=== PATIENT | male | born 1965 | race Caucasian/White ===

== ENCOUNTER → 2016-12-11 | Outpatient (CLI) | payer OTHER ==
[~2016-12-11] VITALS: Ht 188 cm; Wt 107.0 kg
[~2016-12-11] MED LIST: ABILIFY10 MG PO; CENTRUM SILVER1 EAC2 PO; CRESTOR20 MG PO; DEXILANT60 MG PO; FARXIGA10 MG PO; FLUOXETINE HCL40 MG PO; IBUPROFEN 200200 M1 PO; LUNESTA3 MG PO; METFORMIN HCL1000 MG PO; MIRALAX17 GM PO; MOBIC7.5 MG PO; NASONEX17 GM NASAL; PROZAC20 MG PO; RESTORIL30 MG PO; SEROQUEL 300 MG PO; SEROQUEL XR 30300 M1 PO; SINGULAIR 10 MG10 M1 PO; TRAMADOL 50 MG50 MG PO; TRAMADOL HCL50 MG PO; ZEGERID 20 MG1 EACH PO
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
[2016-12-11 13:08] VITALS: BP 136/95
== END | disposition home or self-care (01) ==
LOC: PAIN 07:33
DX: M47.816 Spondylosis without myelopathy or radiculopathy, lumbar region (principal); Z68.30 Body mass index [BMI] 30.0-30.9, adult; I10 Essential (primary) hypertension

== ENCOUNTER → 2016-12-17 | Outpatient (CLI) | payer OTHER ==
[~2016-12-17] VITALS: Ht 188 cm; Wt 106.3 kg
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
[2016-12-17 08:48] VITALS: BP 127/76
== END | disposition home or self-care (01) ==
LOC: PAIN 06:54
DX: M47.816 Spondylosis without myelopathy or radiculopathy, lumbar region (principal)

== ENCOUNTER → 2018-09-01 | Outpatient (CLI) | payer OTHER ==
[~2018-09-01] VITALS: Ht 188 cm; Wt 108.4 kg
[~2018-09-01] MED LIST changes: +ARIPIPRAZOLE5 MG PO; +ESCITALOPRAM OX10 MG PO; +JANUMET XR 50-1 EAC1 PO; +PROTONIX40 M1 PO; +RESTORIL15 MG PO; +REXULTI2 MG PO
[2018-09-01 10:02] VITALS: BP 126/76
--- NOTE | 2018-09-01 10:20 | NUR ---
Pain Clinic Assessment: 1. History of Osteoarthritis: Not Applicable History of Rheumatoid Arthritis: Not Applicable 2. Height: 6 ft. 2 in. 188.0 cm. Weight: 239.0 lb. oz. 108.410 kg. Patient's BMI: 30.7 3. Vital Signs: BP: 126/76 Pulse: 105 Resp: 16 Temp: 02 Sat: 97 ECG Mon: 4. Pain Intensity: 2-3 sitting 8 activity 5. Fall Risk: Dizziness: N Needs help standing or walking: N Fallen in the last 3 months: N Fall risk comments: 6. Patient on Blood Thinner: None 7. History of Hypertension: Y 8. Opioid Therapy greater than 6 weeks: N Opiate Contract Signed: 9. Risk Assessment Tool Provided: 3-L0W 10. Functional Assessment Tool: 4470 11. Recreational Drug Use: Never Drug Type: Tobacco Use: Never Smoker Tobacco Type: Amount or Packs/day: How Many Years: Alcohol Use: No Frequency: Quant:
--- NOTE | 2018-09-06 17:25 | HPC ---
[facility] [place] [address] [address] [place] [address] PAIN MANAGEMENT CONSULTATION Name: ION WOODWARD Room #: REG [facility].#: [id number] Admission: 09/01/18 ������������������ Attend Phys: Dioni Camarillo MD Discharge: ������������������ Date of : 63 Report #: [id number] THIS REPORT FOR: //name// CC: Asim Camarillo DATE OF SERVICE: 09/01/2018 CHIEF COMPLAINT: Low back pain with spondylosis and new onset bilateral L5 radiculopathy. I am seeing the patient for the first time and it has been over 2 years since he was last in our clinic to see Dr. Jann Sanches. When he was here previously, he complained of pain in the left lumbar spine region and Dr. Sanches performed for the second time on 12/17/2016 radiofrequency at the L2, L3 and L4 levels providing outstanding relief. I reviewed those films. Pain relief was in excess of 6 months and has recently gotten worse. He also complains of pain that he describes perfectly as an L5 radicular pain from his back radiating through his hips and down the lateral aspect of his legs to his feet. This is not as bad as his back pain, but he would like some consideration of this condition. He has an MRI dated 07/22/2018, which I reviewed. It shows degenerative changes involving lumbar disks and facets with progression of facet arthropathy at L1-L2 and decreasing anterior osteophyte complex at L2-L3. Additional facet arthropathy is noted at the L2-L3, L3-L4 and L4-L5 levels. Dr. Sanches treated the L2, L3 and L4 medial branch nerves with good success in the past. It also should be noted that there is bilateral foraminal stenosis at L5-S1 from a disk osteophyte complex and lateral recess stenosis at L4-L5 with multifactorial changes including disk bulging contacting the L5 nerve roots. This is likely the cause of his L5 radicular symptoms. MEDICATIONS: Reviewed and reconciled and include pantoprazole, Janumet, Lexapro, temazepam, tramadol, meloxicam, Farxiga, montelukast, Nasonex spray, metformin, Crestor, multivitamins. ALLERGIES: None. PAST MEDICAL HISTORY: Remarkable for bipolar depression. He also has noninsulin-dependent diabetes. History of head injury with tremor. REVIEW OF SYSTEMS: Significant for decreased appetite, constipation, history of peptic ulcers and gastritis. He complains of fatigue and weakness, lightheadedness and occasional headaches. [facility] [address] [place] [address] PAIN MANAGEMENT CONSULTATION Name: ION WOODWARD Room #: REG [facility]#: [id number] Admission: 09/01/18 ������������������ Attend Phys: Dioni Camarillo MD Discharge: ������������������ Date of : 63 Report #: [id number] PHYSICAL EXAMINATION: GENERAL: Very pleasant, soft spoken gentleman. VITAL SIGNS: Blood pressure 126/76, heart rate 105, respirations 16, O2 sat 97. He is 6 feet 2 inches, 239 pounds that makes his BMI 30.7. MUSCULOSKELETAL: He is able to move from a sitting to standing position, but has great difficulty in straightening up and standing straight in order to walk. After about 2 minutes of walking, he is able to then arrange his posture in a normal upright position. He has pain with forward flexion, but much more pain with extension of the lumbar spine. Pain with lateral tilt and rotation both exacerbating pain along the left lumbar spine in the area where he has been previously treated. On straight leg raising, he has pain both in his back and his legs. This is positive in both the sitting and supine position. Deep tendon reflexes are absent bilaterally at knees and ankles. Sensation is diminished in the L5 distribution. IMPRESSION: 1. Chronic low back pain with spondylosis. 2. L5 radiculopathy bilateral. 3. Bipolar depression. RECOMMENDATIONS: We discussed the possibility that there may be more than one pain mechanism and generator here. We could consider an epidural injection, but having his excellent response with radiofrequency ablation at the L2, L3 and L4 levels, I agree that we should repeat those first and see if we may provide some relief of his leg pain if it is in some way referred rather than radicular. I reviewed the procedure with him including risks and benefits, he has had it twice in the past. We will seek preauthorization, bring him back to the clinic on the earliest possible appointment day which will be about 2 weeks. Followup visit at that time. ��������������������������������������������� <ELECTRONICALLY SIGNED> ���������������������������������������� By: Dioni Camarillo MD ��������������������������������������������� 09/06/18 1725 [id number] Dioni Camarillo MD /nt
== END ==
LOC: PAIN 06:54
DX: M47.26 Other spondylosis with radiculopathy, lumbar region (principal); F31.9 Bipolar disorder, unspecified

== ENCOUNTER → 2018-10-24 | Outpatient (CLI) | payer OTHER ==
[~2018-10-24] VITALS: Ht 188 cm; Wt 108.4 kg
--- NOTE | ~2018-10-24 | HPC ---
[facility] [place] [address] PAIN MANAGEMENT CONSULTATION Name: ION WOODWARD Room #: REG [facility]#: [id number] Admission: 10/24/18 Attend Phys: Dioni Camarillo MD Discharge: Date of : 63 Report #: [id number] THIS REPORT FOR: //name// CC: Asim Camarillo DATE OF SERVICE: 10/24/2018 HISTORY: The patient returns to pain clinic today for radiofrequency of the left L2, L3 and L4 medial branch nerves. He has had this performed several times over the course of the last couple of decades. It has been performed in [place] as well as in [place]. My partner, Dr. Sanches, performed procedure for him last on 12/17/2016. He obtained good response. He has a history of lumbar spondylosis. He is well acquainted with the procedure. We will not repeat the diagnostic injections given his past history of good response. Medications were reviewed and reconciled. He is on a number of centrally acting medications for bipolar, depression. MEDICATIONS: Abilify, pantoprazole, Janumet, temazepam, tramadol, Seroquel, meloxicam, Farxiga, Singulair, Nasonex, metformin, Crestor, Centrum Silver. He also is type 2 diabetic. PHYSICAL EXAMINATION: GENERAL: He is a pleasant 53-year-old. VITAL SIGNS: Blood pressure is 117/78, heart rate 99, respirations 20. He moves from sitting to standing position. His gait is mildly antalgic. He has some pain with back extension. This reproduces his usual discomfort. There is tenderness on bilateral, but worse on the left. Straight leg raising is negative. There are no radicular symptoms whatsoever. X-rays reviewed include an MRI dated 07/22/2018. This shows degenerative changes involving lumbar disks and facets with progression. There is facet arthropathy at L2-L3, L1-L2 and some multifactorial changes at L4-L5 and L5-S1. IMPRESSION: Cervical spondylosis that has responded very favorably to medial branch nerve blocks performed at L3, L4, L5 transverse process. PLAN: Proceed today with radiofrequency ablation. After informed consent, he was taken to the fluoroscopic suite, placed prone, skin prepped with ChloraPrep. Skin was anesthetized, first at L5 transverse process and L4, then L3. A 20-gauge 10 mm active tip RFL needles were advanced [address] [address] PAIN MANAGEMENT CONSULTATION Name: ION WOODWARD [id number] Admission: 10/24/18 Attend Phys: Dioni Camarillo MD Discharge: Date of : 63 Report #: [id number] into position at the medial border of the transverse process at the junction of the superior articular process. Needle was slightly walked into position using a lateral radiograph. After negative aspiration at each level, a probe was placed and we performed sensory and motor testing. Outstanding responses were achieved at low voltage 0.2, 0.3 and 0.5 respectively at L3, L4, and L5 transverse process corresponding to the L2, L3 and L4 medial branch nerves. Motor testing was performed without any radiation or movement into the leg. Probes were then removed. I injected 1 mL of 1% lidocaine and replaced the probes waiting 90 seconds. Once local anesthetic had become effective, we performed lesioning simultaneously at each level using 80 degree temperature for lesioning time of 90 seconds. There was no discomfort during the procedure other than some mild warmth and aching into the low back and mild into the groin. This dissipated quickly. At the conclusion of the radiofrequency procedure, the probes were removed 1 mL of solution containing 10 mg of triamcinolone and 0.5% bupivacaine, 1 mL was injected through each needle as it was withdrawn. He tolerated the procedure well and was taken to recovery room, his pain score is 0 from the local anesthetic effects in recovery room. Followup visit is planned as needed. I did provide him with tramadol #60 tablets, which he has used very sparingly for severe episodes of pain. He will carefully safeguard the medication. He tells me he is planning to move back to [facility]. We will see him as we see him in the future. By: [id number] Dioni Camarillo MD /nt
[2018-10-24 13:35] VITALS: BP 117/78
--- NOTE | 2018-10-24 13:49 | NUR ---
Pain Clinic Assessment: 1. History of Osteoarthritis: Not Applicable History of Rheumatoid Arthritis: Not Applicable 2. Height: 6 ft. 2 in. 188.0 cm. Weight: 239.0 lb. oz. 108.410 kg. Patient's BMI: 30.7 3. Vital Signs: BP: 117/78 Pulse: 99 Resp: 20 Temp: 02 Sat: 96 ECG Mon: 4. Pain Intensity: 2-3 sitting 8 activity 5. Fall Risk: Dizziness: Y Needs help standing or walking: N Fallen in the last 3 months: N Fall risk comments: 6. Patient on Blood Thinner: None 7. History of Hypertension: Y 8. Opioid Therapy greater than 6 weeks: N Opiate Contract Signed: 9. Risk Assessment Tool Provided: 3-L0W 10. Functional Assessment Tool: 4470 11. Recreational Drug Use: Never Drug Type: Tobacco Use: Never Smoker Tobacco Type: Amount or Packs/day: How Many Years: Alcohol Use: No Frequency: Quant:
== END | disposition home or self-care (01) ==
LOC: PAIN 07:02
DX: M47.816 Spondylosis without myelopathy or radiculopathy, lumbar region (principal); G89.29 Other chronic pain; E11.9 Type 2 diabetes mellitus without complications; F31.9 Bipolar disorder, unspecified; Z98.890 Other specified postprocedural states; Z79.899 Other long term (current) drug therapy